=== PATIENT | male | born 2000 | race Caucasian/White ===

== ENCOUNTER 2024-05-07 12:03 | Emergency (ER) | payer OTHER, SELFPAY ==
--- NOTE | ~2024-05-07 | US_ITS ---
US scrotum doppler INDICATION: Right testicular pain TECHNIQUE: Testicular sonogram utilizing grayscale and color Doppler FINDINGS: The testes are normal in size and appearance. No focal lesions are seen. The right testes measures 4 x 2 x 2.6 centimeters, and the left testis measures 4.2 x 2.7 x 2.9 cm. There is normal va scular flow to both testes. Right epididymis appears enlarged and hyperemic, suspicious for epididymitis. Small right hydrocele. IMPRESSION: 1. Enlarged hyperemic right epididymis, suspicious for epididymitis. 2: Small right hydrocele. Reviewed, dictated and finalized at location B.
[2024-05-07 12:05] VITALS: BP 143/89; PULSE 98; RESP 18; TEMP 36.4; O2SAT 100
--- NOTE | 2024-05-07 13:01 | ED.GENADULT ---
HPI - General Adult General Chief complaint: Urogenital-Male Stated complaint: Pain in right testicle Time Seen by Provider: 05/07/24 12:17 History of Present Illness HPI narrative: 23-year-old male presents to the emergency department for evaluation of right testicular pain this been ongoing for the last week. Patient denies any falls or injuries. Patient states he is in a monogamous relationship and denies any high-risk sexual behavior, patient does not were contacts during this relationship. Related Data Allergies Allergy/AdvReac Type Severity Reaction Status Date / Time No Known Allergies Allergy Verified 05/07/24 12:04 Review of Systems Review of Systems: All systems reviewed & are unremarkable except as noted in HPI and below Exam Narrative: APPEARANCE: Well appearing, no pain, no distress, well-nourished. HEAD: normocephalic, atraumatic. EYES: PERRLA/EOMI, conjunctivae clear. NOSE: Normal no drainage NECK: Supple. No adenopathy, no masses. RESPIRATORY: Airway patent, respirations nonlabored. Clear to auscultation bilaterally, no rales, rhonchi, wheezing. CARDIOVASCULAR: Regular rate and rhythm without murmurs rubs or gallops. ABDOMINAL: Soft, nontender, nondistended, normal bowel sounds MUSCULOSKELETAL: Moves all extremities. Strength/ROM intact, No edema, No calf tenderness. NEURO: Alert. Cranial nerves II through XII intact. Good gait. Good coordination Genital: Right testicle was mildly high riding. Tenderness to palpation SKIN: Warm, dry. Normal Color PSYCHIATRIC: Normal affect/mood. Course Course Emergency Course: Patient was updated on the results of the workup and plan for antibiotics and close follow-up. Vital Signs Vital signs: Vital Signs Temperature 97.6 F 05/07/24 12:05 Pulse Rate 98 05/07/24 12:05 Respiratory Rate 18 05/07/24 12:05 Blood Pressure 143/89 H 05/07/24 12:05 Pulse Oximetry 100 05/07/24 12:05 Oxygen Delivery Room Air 05/07/24 12:05 Temperature 97.6 F 05/07/24 12:05 Pulse Rate 98 05/07/24 12:05 Respiratory Rate 18 05/07/24 12:05 Blood Pressure 143/89 H 05/07/24 12:05 Pulse Oximetry 100 05/07/24 12:05 Oxygen Delivery Room Air 05/07/24 12:05 Medical Decision Making MDM Narrative Medical decision making narrative: 23-year-old male presented emergency department for evaluation for right testicular pain. Ultrasound showed evidence of epididymitis. Patient was started on doxycycline and IM Rocephin emergency department. Differential Diagnosis Differential Diagnosis: Gonorrhea, chlamydia, urinary tract infection, torsion, epididymitis, varicocele, hydrocele Vital Signs Vital Signs: Vital Signs Temperature 97.6 F 05/07/24 12:05 Pulse Rate 98 05/07/24 12:05 Respiratory Rate 18 05/07/24 12:05 Blood Pressure 143/89 H 05/07/24 12:05 Pulse Oximetry 100 05/07/24 12:05 Oxygen Delivery Room Air 05/07/24 12:05 Temperature 97.6 F 05/07/24 12:05 Pulse Rate 98 05/07/24 12:05 Respiratory Rate 18 05/07/24 12:05 Blood Pressure 143/89 H 05/07/24 12:05 Pulse Oximetry 100 05/07/24 12:05 Oxygen Delivery Room Air 05/07/24 12:05 Lab Data Lab results reviewed: Yes I reviewed the patient's lab results. Labs: Lab Results 05/07/24 Range/Units 12:27 Urine Color Yellow (Yellow) Urine Appearance Clear (Clear) Urine pH 6.5 (5.0-9.0) Ur Specific [place] 1.018 (1.001-1.035) Urine Protein Negative (Negative) mg/dL Urine Glucose (UA) Negative (Negative) mg/dL Urine Ketones Negative (Negative) mg/dL Ur Blood (Man) Negative (Negative) Urine Nitrate Negative (Negative) Urine Bilirubin Negative (Negative) Urine Urobilinogen 1.0 (<2.0) mg/dL Leukocyte Esterase Rfl Negative (Negative) HIMANSHU/UL C. trachomatis (PCR) Not detected (NOT DETECTE) N. gonorrhoeae (PCR) Not detected (NOT DETECTE) Discharge Plan Discharge Clinical Impression: Epididymitis
[2024-05-07 13:03] LABS: Appearance Urine Clear (Clear); Bilirubin Urine Negative (Negative); Blood Urine Negative (Negative); Color Urine Yellow (Yellow); Glucose Urine UA Negative (Negative); Ketones Urine Negative (Negative); Leukocyte Esterase Ur Negative LEU/UL (Negative); Nitrate Urine Negative (Negative); Protein Urine Negative (Negative); Specific Grav Ur 1.018 (1.001-1.035); pH Urine 6.5 (5.0-9.0)
[2024-05-07 13:09] LABS: Add Urine Microscopic? NO
[2024-05-07] MEDS: DOXYCYCLINE HYCLATE 100 MG TABLET PO (13:20)
[2024-05-07] MEDS: cefTRIAXone 1 GM VIAL 0.5 GM IM (13:21)
[2024-05-07] MEDS: WATER, STERILE FOR INJECTION 10 ML VIAL XX (13:27)
[2024-05-07 14:30] LABS: Chlamydia trachomatis NOT DETECTED (NOT DETECTE); Neisseria gonorrhoeae PCR NOT DETECTED (NOT DETECTE)
== END 2024-05-07 13:36 | disposition home or self-care (01) ==
PROVIDERS: Emergency Provider Emergency Medicine
DX: N45.1 Epididymitis (principal)
CPT/HCPCS: 76870; 81003; 87491; 87591; 93976; 96372; 99284; A9270; J0696